=== PATIENT | female | born 1990 | race Caucasian/White ===

== ENCOUNTER 2020-12-14 07:09 | Day surgery (SDC) | payer BC ==
[2020-12-10 11:07] LABS: Absolute Lymphocytes (CBC) 2.6 K/uL (0.7-4.9); Basophils % 1.3 % (0-1.3); Hematocrit 39.8 % (36.0-45.0); Lymphocytes % 29.8 % (15.3-44.8); MPV 7.3 fL (7.6-11.3); RBC Red Blood Cell Count 4.78 M/uL (3.86-4.86)
[2020-12-10 11:23] LABS: Protime INR 1.04
--- NOTE | 2020-12-10 11:25 | RAD REPORT ---
EXAM DESCRIPTION: RAD - Chest Pa And Lat (2 Views) - 12/10/2020 10:54 am CLINICAL HISTORY: preop Chest pain. COMPARISON: Chest Single View dated 06/18/2017 FINDINGS: The lungs are clear. The heart is normal in size. No displaced fractures. Moderate thoraci c dextroscoliosis. IMPRESSION: Moderate dextroscoliosis of the thoracic spine.
[2020-12-10 11:27] LABS: BUN Blood Urea Nitrogen 10 mg/dL (7-18); Bicarbonate 26 mmol/L (21-32); Glucose Level 74 mg/dL (74-106); Potassium 4.2 mmol/L (3.5-5.1); Sodium Level 140 mmol/L (136-145)
[2020-12-14] MEDS ORDERED: Ringers Lactate 1,000 ML IV ONE (07:45)
[2020-12-14] MEDS ORDERED: CEFAZOLIN/SWI 1gm 2 GM/20 ML SYR ONE (07:46)
[2020-12-14] MEDS ORDERED: BUPIVACAINE 0.25% PF 30 ML VIAL ONE (08:57)
--- NOTE | 2020-12-14 09:40 | P.BOP ---
Preoperative diagnosis: left carpal tunnel syndrome Postoperative diagnosis: same Primary procedure: left carpal tunnel release Package Center Supervisor: NONE,NONE Estimated blood loss: 2 cc Specimen: none Findings: see dictation Anesthesia: Balbina Block Complications: None Implants: none Fluids & blood products: per anesthesia record: TT: 30 mins @ 300 mmHg Transferred to: Recovery Room Condition: Good
[2020-12-14] MEDS ORDERED: LIDOCAINE 2% MPF 5 ML VIAL ONE (10:19)
[2020-12-14] MEDS ORDERED: propofoL 200 MG/20 ML VIAL IV ONE (10:19)
[2020-12-14] MEDS ORDERED: KETOROLAC 30 MG/ML INJ ONE (10:19)
[2020-12-14] MEDS ORDERED: MIDAZOLAM HCL 2 MG/2 ML INJ ONE (10:19)
[2020-12-14] MEDS ORDERED: ONDANSETRON 4 MG/2 ML VIAL ONE (10:19)
[2020-12-14] MEDS ORDERED: NS 0.9% VIAL 30 ML ONE (10:19)
[2020-12-14] MEDS ORDERED: dexAMETHasone 10 MG/ML VIAL ONE (10:19)
[2020-12-14] MEDS ORDERED: LIDOCAINE 1% MPF 30 ML VIAL ONE (10:19)
[2020-12-14] MEDS ORDERED: FENTANYL CITR 100 MCG/2 ML ONE (10:19)
[2020-12-14 10:22] VITALS: BP 159/97; TEMP 97.4; O2SAT 100
--- NOTE | 2020-12-14 11:27 | OP ---
Date of Procedure: 12/14/2020 Surgeon: Pavel Sterling MD Preoperative Diagnosis: Left carpal tunnel syndrome. Postoperative Diagnosis: Left carpal tunnel syndrome. Procedure Performed: Left open carpal tunnel release. Anesthesia: Symonds block. Fluids: Per Anesthesia record. Estimated Blood Loss: 3 cc. Complications: None. Implants: None. Tourniquet Time: 30 minutes at 300 mmHg. Indication For Procedure: Sally is a 30-year-old female, who presented to my clinic with signs, symp toms and EMG findings consistent with left carpal tunnel syndrome. The patient failed conservative t reatment measures and had significant symptoms that interfered with her activities of daily living. I discussed with the patient at length risks and benefits associated with operative and nonoperative treatment. She expressed understanding and elected to proceed with operative treatment. Description Of Procedure: After informed consent was obtained, the patient was identified in the pre operative holding area and left upper extremity was marked. The patient was then brought back to the operating room, transferred to the operating table in the supine fashion and placed under Symonds block anesthesia. The left upper extremity was then prepped and draped in usual sterile fashion and time- out was initiated. The correct patient and procedure were confirmed and identified. The patient did receive her preoperative prophylactic antibiotics. Attention was first taken and approximately 3 cm longitudinal incision was made just ulnar to the thenar crease. Dissection was then taken down to t he palmar fascia, which was identified. A Graff elevator was placed just deep to the palmar fascia t o protect the median nerve at all times. A 15 blade was then used to release the palmar fascia and t ransverse carpal ligament. A Graff elevator protected the median nerve at all times. Blunt tip Adalid enbaum was then used to release any remaining fascial bands around the transverse carpal ligament for complete carpal tunnel release. The wound was irrigated thoroughly with normal saline. The skin wa s approximated using 5-0 Prolene. Sterile dressings were applied. Tourniquet was let down. The pat ient was awakened and transferred to same-day surgery in stable condition. Postoperative Plan: The patient will be continued work on range of motion exercises and will be nonw eightbearing. She will follow up in 1 week for suture removal. NEIL/SULEMA Voice ID: [id number] Report ID: [id number]
== END 2020-12-14 10:20 | disposition home or self-care (01) ==
LOC: OR 07:09
PROVIDERS: ATTEND Orthopaedic Surgery Sports Medicine
PROC: 01N50ZZ Release Median Nerve, Open Approach (ICD-10-PCS; principal; 2020-12-14 08:45)
DX: G56.02 Carpal tunnel syndrome, left upper limb (principal); M25.542 Pain in joints of left hand; Z20.822 Contact with and (suspected) exposure to COVID-19
CPT/HCPCS: 93005; 85025; 80048; 36415; 81025; 85610; 85730; 71046; 64721; U0002; J2704; J2250; J3010; J1100; J0690; J7120; J2405

== ENCOUNTER 2024-06-24 07:24 | Day surgery (SDC) | payer BC ==
[2024-06-24] MEDS ORDERED: MIDAZOLAM HCL 2 MG/2 ML INJ ONE (07:49)
[2024-06-24] MEDS ORDERED: dexAMETHasone 10 MG/ML VIAL ONE (07:49)
[2024-06-24] MEDS ORDERED: ROCURONIUM 50 MG/5 ML VIAL IV ONE (07:49)
[2024-06-24] MEDS ORDERED: FENTANYL CITR 100 MCG/2 ML ONE (07:49)
[2024-06-24] MEDS ORDERED: propofoL 200 MG/20 ML VIAL IV ONE (07:49)
[2024-06-24] MEDS ORDERED: LIDOCAINE 1% MPF 5 ML VIAL ONE (07:49)
[2024-06-24] MEDS ORDERED: ONDANSETRON 4 MG/2 ML VIAL ONE (07:49)
[2024-06-24] MEDS ORDERED: GLYCOPYRROLATE 0.2 MG/ML SYR ONE (07:50)
[2024-06-24] MEDS: Ringers Lactate 1,000 ML IV ONE (07:55)
[2024-06-24] MEDS: OXYMETAZOLINE HCL 0.05% 15ML NAS ONE (08:05)
[2024-06-24] MEDS ORDERED: BACITRACIN OINTMENT 14 GM TUBE TOP ONE (08:43)
[2024-06-24] MEDS ORDERED: EPINEPHRINE 1 MG/ML VIAL ONE (08:43)
[2024-06-24] MEDS ORDERED: OXYMETAZOLINE HCL 0.05% 15ML NAS ONE (08:44)
[2024-06-24 09:20] LABS: Urine Specific Gravity/Preg 1.025 (1.005-1.030)
[2024-06-24] MEDS: LIDOCAINE HCL/EPINEPHRINE 20 ML MDV ONE (10:32)
--- NOTE | 2024-06-24 10:44 | P.OP ---
Date of Service: 06/24/24 Preoperative diagnosis: Adenoid hypertrophy, chronic adenoiditis, chronic right maxillary sinusitis and postnasal drainage Postoperative diagnosis: Same Procedure: adenoidectomy, greater than age 12. Nasal endoscopy with right maxillary antrostomy Surgeon: Cindy Patricia MD Infant Nanny: None Anesthesia: General via endotracheal tube IV fluids: See anesthesia record, crystalloid Estimated blood loss: 20 mL Specimen: none Findings: Chronic adenoid inflammation. Accessory ostium right maxillary sinus with mild to moderate mucosal inflammation of the right sinus cavity Details of operation: The patient was brought to the operating room and placed under general anesthesia via oral endotracheal tube. The head of bed was turned 90 degrees. A shoulder roll was placed and the neck was extended. A head drape was applied. The McIvor mouthgag was placed and suspended from the Khalil stand. The oxygen concentration was confirmed with the anesthesiologist and was less than 40%. Weight-based dexamethasone was administered by the anesthesiologist. The soft palate was palpated and there was no submucous cleft. A red rubber catheter was placed in the nose and the tip withdrawn through the mouth and secured to the head drape for retraction of the soft palate. The tonsils were noted to be small to medium with crypts. A laryngeal mirror was then used to visualize the nasopharynx. The adenoid size was noted to be enlarged for age with chronic inflammation and mucoid drainage on the posterior pharyngeal wall and mild cobblestoning of the posterior pharyngeal wall. Using the laryngeal mirror for visualization of the nasopharynx, the straight Blakesley was passed through the left nostril and adv anced through the nasal cavity and used to obtain a small amount of adenoid tissue for pathologic evaluation. The remaining adenoids were removed using suction Bovie cautery. Hemostasis was achieved with packing and cautery as needed. All packing was removed. The nasal cavity, nasopharynx and oropharynx was irrigated with cold saline. The red rubber catheter was removed and used to suction the oropharynx, nasopharynx, and nasal cavities. The McIvor mouthgag was removed. There was no evidence of injury to the teeth, lips, or tongue. The mandible was mobile. Attention was then turned to the sinus portion of the case. A 0 degree endoscope was used to perform a nasal endoscopy with notable findings of right accessory maxillary ostium but no active purulent drainage or evidence of inflammatory polyp or other neoplasm. No accessory ostium was visualized on the left side. Photo documentation was obtained. The right middle turbinate was medialized using a [place] and the uncinate process was injected with a small amount of 1% lidocaine with epinephrine. The uncinate was then medialized using a maxillary seeker. The backbiter and 90 degree Blakesley were used to cut and remove the uncinate process. The 30 degree rigid scope was then used for better visualization of the lateral nasal wall and right maxillary sinus. The Heuweiser was used to remove additional portions of the uncinate process with care taken to incorporate the created antrostomy with the accessory and natural ostium. Afrin-soaked pledgets were placed within the middle meatus for several minutes. The nasal cavity was irrigated using a bulb syringe. The nasal cavity was suctioned; after removal of all packing and pledgets, the antrostomy and sinus were visualized with the 70 degree endoscope with notation of mild to moderate mucosal inflammation but no overt pus or polyp was noted. There was no significant oozing and decision was made to forego nasal packing. Removed tissue was sent to pathology as right maxillary sinus with suspicion for acute and chronic inflammation. At the conclusion of the procedure, all pledget counts were confirmed correct. The patient was returned to care of anesthesia for awakening extubation in the operating room which proceeded without difficulty. The patient was transported to the recovery room and will be discharged home later today in the care of their family. The patient is given written and verbal instructions regarding the importance of saline irrigations and nasal precautions. Implants/Packing: None Complications: None
[2024-06-24] MEDS: HYDROMORPHONE HCL 1 MG/ML INJ ONE ×2 (10:55→11:11)
[2024-06-24] MEDS: IBUPROFEN 400 MG TAB ONE (11:38)
[2024-06-24 14:21] VITALS: BP 111/80; TEMP 98; O2SAT 98
== END 2024-06-24 12:10 | disposition home or self-care (01) ==
LOC: OR 07:24
PROVIDERS: ATTEND Otolaryngology
PROC: 0CTQXZZ Resection of Adenoids, External Approach (ICD-10-PCS; principal; 2024-06-24 08:45)
PROC: 099Q8ZZ Drainage of Right Maxillary Sinus, Via Natural or Artificial Opening Endoscopic (ICD-10-PCS; 2024-06-24 08:45)
DX: J35.2 Hypertrophy of adenoids (principal); J32.0 Chronic maxillary sinusitis; R09.82 Postnasal drip
CPT/HCPCS: 81025; 88304; 88305; 42831; 31256; J2704; J2003; J2250; J3010; J1100; J1171 ×2; J2405; J7120; J0171

== ENCOUNTER 2024-06-24 17:32 | Emergency (ER) | payer BC ==
[2024-06-24] MEDS ORDERED: NA CHLORIDE 0.9% 500 ML ONE (17:59)
[2024-06-24] MEDS ORDERED: ONDANSETRON 4 MG/2 ML VIAL ONE (17:59)
[2024-06-24] MEDS ORDERED: TRANEXAMIC ACID 1,000 MG/10 ML VIAL IV ONE (17:59)
[2024-06-24] MEDS ORDERED: NA CHLORIDE 0.9% 100 ML ONE (18:00)
[2024-06-24 18:11] LABS: Absolute Neutrophil 9.3 K/uL (1.8-8.0); Basophils % 0.5 % (0-1.3); Hematocrit 42.5 % (36.0-45.0); Hemoglobin 14.3 g/dL (12.0-15.0); Lymphocytes % 9.7 % (15.3-44.8); MCH 28.9 pg (27.0-35.0); MCHC 33.7 g/dL (32.0-36.0); MCV 85.8 fL (80-100); MPV 7.1 fL (7.6-11.3); Monocytes % 0.4 % (3.3-12.3); Neutrophils % 89.4 % (41.7-73.7); PT Prothrombin Time 12.4 SECONDS (9.4-12.5); Platelets 367 thou/uL (152-406); Protime INR 1.18; RBC Red Blood Cell Count 4.96 M/uL (3.86-4.86); Red Cell Distribution Width 13.3 % (12.1-15.2)
[2024-06-24 18:22] LABS: Albumin 3.5 g/dL (3.4-5.0); Albumin/Globulin Ratio 0.8 (1.1-1.8); Anion Gap 11.2 mEq/L (5.0-15.0); Bilirubin Total 0.3 mg/dL (0.2-1.0); Globulin 4.3 g/dL (2.3-3.5); Potassium 4.2 mEq/L (3.5-5.1); Protein, Total 7.8 g/dL (6.4-8.2)
--- NOTE | 2024-06-24 18:23 | ER ---
Nurse's Notes [facility] Name: Sally Stanley Age: 34 yrs Sex: Female : 1990 Arrival Date: 06/24/2024 Time: 17:32 Bed 18 Private MD: Diagnosis: Epistaxis;Postprocedural hemorrhage of skin and subcutaneous tissue following other procedure Presentation: 06/24 17:41 Chief complaint: Patient states: Sent by Dr Patricia's office. Patient had adenoidectomy me1 and a piece of bone removed from her nose this morning and patient has had intermittent nose bleeds from the right nare today. Coronavirus screen: Vaccine status: Patient reports being unvaccinated. Ebola Screen: No symptoms or risks identified at this time. Initial Sepsis Screen: Does the patient meet any 2 criteria? No. Patient's initial sepsis screen is negative. Does the patient have a suspected source of infection? No. Patient's initial sepsis screen is negative. Risk Assessment: Do you want to hurt yourself or someone else? Patient reports no desire to harm self or others. Onset of symptoms was June 24, 2024 at 09:00. 17:41 Method Of Arrival: Ambulatory fl1 17:41 Acuity: JACKY 4 me1 Triage Assessment: 17:43 General: Appears comfortable, well groomed, well developed, well nourished, Behavior is me1 calm, cooperative, appropriate for age. Pain: Complains of pain in right submandibular area and left submandibular area Pain does not radiate. Pain currently is 2 out of 10 on a pain scale. Quality of pain is described as tender, Pain began gradually, Is continuous. EENT: Reports adenoid excision today. EENT: Reports nasal discharge that is bloody intermittently today since surgery. Not bleeding at this time. Neuro: Level of Consciousness is awake, alert, obeys commands, Oriented to person, place, time, situation, Appropriate for age. Cardiovascular: Patient's skin is warm and dry. Respiratory: Airway is patent Respiratory effort is even, unlabored, Respiratory pattern is regular, symmetrical. GI: No signs and/or symptoms were reported involving the gastrointestinal system. : No signs and/or symptoms were reported regarding the genitourinary system. Derm: Skin is intact, is healthy with good turgor, Skin is pink, warm \T\ dry. Musculoskeletal: No signs and/or symptoms reported regarding the musculoskeletal system. 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 - Infectious Disease History:: Denies. - Social history:: Smoking status: Patient denies any tobacco usage or history of. Screenin:46 [facility] ED Fall Risk Assessment (Adult) History of falling in the last 3 months, me1 including since admission No falls in past 3 months (0 pts) Confusion or Disorientation No (0 pts) Intoxicated or Sedated No (0 pts) Impaired Gait No (0 pts) Mobility Assist Device Used No (0 pt) Altered Elimination No (0 pt) Score/Fall Risk Level 0 - 2 = Low Risk Maintained a safe environment, Provided non-skid footwear, Hourly rounding (assess needs \T\ fall precautionary measures) done. Abuse screen: Denies threats or abuse. Nutritional screening: No deficits noted. Tuberculosis screening: No symptoms or risk factors identified. Assessment: 17:46 General: See triage assessment.. me1 Vital Signs: 17:41 BP 114 / 79; Pulse 83; Resp 16; Temp 98.4; Pulse Ox 96% ; Weight 63.5 kg; Height 5 ft. me1 0 in. ; Pain 2/10; 18:30 BP 108 / 76; Pulse 85; Resp 16; Temp 98.3; Pulse Ox 97% ; me1 17:41 Body Mass Index 27.34 (63.50 kg, 152.4 cm) me1 17:41 Pain Scale: Adult me1 ED Course: 17:34 Patient arrived in ED. ra3 17:36 Justino Champion MD is Attending Physician. herbie 17:41 Chichi Romero, YONI is Primary Nurse. me1 17:43 Triage completed. me1 17:43 Arm band placed on Patient placed in an exam room. EKG completed in triage. Results me1 shown to MD. 17:46 Patient has correct armband on for positive identification. Bed in low position. Call me1 light in reach. Side rails up X 1. Provided Education on: POC. Verbalized understanding.. 17:46 No provider procedures requiring assistance completed. me1 17:56 PT-INR Sent. me1 17:56 Comprehensive Metabolic Panel Sent. me1 17:56 CBC with Diff Sent. me1 17:56 Initial lab(s) drawn, by me, sent to lab. Inserted saline lock: 22 gauge in right me1 antecubital area, using aseptic technique. 18:22 Cindy Patricia MD is Referral Physician. herbie 18:36 IV discontinued, intact, bleeding controlled, No redness/swelling at site. Pressure me1 dressing applied. Administered Medications: 17:36 CANCELLED (Duplicate Order): Ondansetron Oral Disintegrating Tablet 4 mg PO once herbie 18:07 Drug: NS 0.9% IV 500 ml 500 ml IV at 1 bolus once; to be given as a bolus over 30 me1 minutes Volume: 500 ml; Route: IV; Rate: 1 bolus; Site: right antecubital; 18:31 Follow up: Response: No adverse reaction; IV Status: Completed infusion; IV Intake: me1 500ml 18:07 Drug: Ondansetron IVP 4 mg IVP once; over 2 minutes Route: IVP; Site: right antecubital;me1 18:31 Follow up: Response: No adverse reaction me1 18:07 Drug: tranexamic acid 1000 mg IV at per protocol once; administer at a rate not to me1 exceed 100 mg per min Route: IV; Rate: per protocol; Site: right antecubital; 18:31 Follow up: Response: No adverse reaction; IV Status: Completed infusion me1 Medication: 17:46 VIS not applicable for this client. me1 Intake: 18:31 IV: 500ml; Total: 500ml. me1 Outcome: 18:22 Discharge ordered by . herbie 18:36 Discharged to home ambulatory, with significant other, me1 18:36 Condition: stable 18:36 Discharge instructions given to patient, significant other, Instructed on discharge instructions, follow up and referral plans. Demonstrated understanding of instructions, follow-up care, 18:37 Patient left the ED. me1 Signatures: Justino Champion MD MD cha Eddleman, Michelle, RN RN me1 Rachel Babb ra3
--- NOTE | 2024-06-24 18:23 | EDPHYS ---
Physician Documentation [facility] Name: Sally Stanley Age: 34 yrs Sex: Female : 1990 Arrival Date: 06/24/2024 Time: 17:32 Bed 18 Private MD: Justino Nuñez HPI: 06/24 17:44 This 34 yrs old Female presents to ER via Ambulatory with complaints of Nose herbie Bleed - Post Sx. 17:44 The patient presents with a nose bleed, nasal drainage, that is bloody. Onset: The herbie symptoms/episode began/occurred just prior to arrival, today. Modifying factors: The symptoms are alleviated by nothing. the symptoms are aggravated by nothing. Associated signs and symptoms: The patient has no apparent associated signs or symptoms, Loss of consciousness: the patient experienced no loss of consciousness. 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 - Infectious Disease History:: Denies. - Social history:: Smoking status: Patient denies any tobacco usage or history of. ROS: 17:46 Constitutional: Negative for fever, chills, and weight loss, Eyes: Negative for injury, herbie pain, redness, and discharge, Neck: Negative for injury, pain, and swelling, Cardiovascular: Negative for chest pain, palpitations, and edema, Respiratory: Negative for shortness of breath, cough, wheezing, and pleuritic chest pain, Abdomen/GI: Negative for abdominal pain, nausea, vomiting, diarrhea, and constipation, Back: Negative for injury and pain, : Negative for injury, bleeding, discharge, and swelling, MS/Extremity: Negative for injury and deformity, Skin: Negative for injury, rash, and discoloration, Neuro: Negative for headache, weakness, numbness, tingling, and seizure, Psych: Negative for depression, anxiety, suicide ideation, homicidal ideation, and hallucinations, Allergy/Immunology: Negative for hives, rash, and allergies, Endocrine: Negative for neck swelling, polydipsia, polyuria, polyphagia, and marked weight changes, Hematologic/Lymphatic: Negative for swollen nodes, abnormal bleeding, and unusual bruising, 17:46 ENT: Positive for nose bleed, Exam: 17:46 Constitutional: This is a well developed, well nourished patient who is awake, alert, herbie and in no acute distress. Head/Face: Normocephalic, atraumatic. Eyes: Pupils equal round and reactive to light, extra-ocular motions intact. Lids and lashes normal. Conjunctiva and sclera are non-icteric and not injected. Cornea within normal limits. Periorbital areas with no swelling, redness, or edema. Neck: Trachea midline, no thyromegaly or masses palpated, and no cervical lymphadenopathy. Supple, full range of motion without nuchal rigidity, or vertebral point tenderness. No Meningismus. Chest/axilla: Normal chest wall appearance and motion. Nontender with no deformity. No lesions are appreciated. Cardiovascular: Regular rate and rhythm with a normal S1 and S2. No gallops, murmurs, or rubs. Normal PMI, no JVD. No pulse deficits. Respiratory: Lungs have equal breath sounds bilaterally, clear to auscultation and percussion. No rales, rhonchi or wheezes noted. No increased work of breathing, no retractions or nasal flaring. Abdomen/GI: Soft, non-tender, with normal bowel sounds. No distension or tympany. No guarding or rebound. No evidence of tenderness throughout. Back: No spinal tenderness. No costovertebral tenderness. Full range of motion. Skin: Warm, dry with normal turgor. Normal color with no rashes, no lesions, and no evidence of cellulitis. MS/ Extremity: Pulses equal, no cyanosis. Neurovascular intact. Full, normal range of motion., bilateral aka Neuro: Awake and alert, GCS 15, oriented to person, place, time, and situation. Cranial nerves II-XII grossly intact. Motor strength 5/5 in all extremities. Sensory grossly intact. Cerebellar exam normal. Normal gait. Psych: Awake, alert, with orientation to person, place and time. Behavior, mood, and affect are within normal limits. 17:46 ENT: Nose: Mouth: Oral mucosa: normal, Gums: normal with healthy appearance, Vital Signs: 17:41 BP 114 / 79; Pulse 83; Resp 16; Temp 98.4; Pulse Ox 96% ; Weight 63.5 kg; Height 5 ft. me1 0 in. ; Pain 2/10; 18:30 BP 108 / 76; Pulse 85; Resp 16; Temp 98.3; Pulse Ox 97% ; me1 17:41 Body Mass Index 27.34 (63.50 kg, 152.4 cm) me1 17:41 Pain Scale: Adult me1 MDM: 17:36 Medical Screening Exam initiated [facility] 17:48 Differential diagnosis: trauma, sp adenoidectomy. Data reviewed: vital signs, nurses [facility] notes, lab test result(s), CBC, electrolytes. Consideration of Admission/Observation Escalation of care including admission/observation considered. I considered the following discharge prescriptions or medication management in the emergency department Medications were administered in the Emergency Department. See MAR. Test considered but Not performed: CT: no ct. ED course: dw dr kathi ortega, 1 gm txa, obs the dc. 06/24 17:36 Order name: CBC with Diff; Complete Time: 18:22 [facility] 06/24 17:36 Order name: Comprehensive Metabolic Panel [facility] 06/24 17:36 Order name: PT-INR; Complete Time: 18:22 herbie Administered Medications: 17:36 CANCELLED (Duplicate Order): Ondansetron Oral Disintegrating Tablet 4 mg PO once [facility] 18:07 Drug: NS 0.9% IV 500 ml 500 ml IV at 1 bolus once; to be given as a bolus over 30 me1 minutes Volume: 500 ml; Route: IV; Rate: 1 bolus; Site: right antecubital; 18:31 Follow up: Response: No adverse reaction; IV Status: Completed infusion; IV Intake: me1 500ml 18:07 Drug: Ondansetron IVP 4 mg IVP once; over 2 minutes Route: IVP; Site: right antecubital;me1 18:31 Follow up: Response: No adverse reaction ia1 18:07 Drug: tranexamic acid 1000 mg IV at per protocol once; administer at a rate not to me1 exceed 100 mg per min Route: IV; Rate: per protocol; Site: right antecubital; 18:31 Follow up: Response: No adverse reaction; IV Status: Completed infusion me1 Disposition Summary: 06/24/24 18:22 Discharge Ordered Notes: Location: Home herbie Problem: new herbie Symptoms: have improved herbie Condition: Stable herbie Diagnosis - Epistaxis herbie - Postprocedural hemorrhage of skin and subcutaneous tissue following other procedure herbie Followup: herbie - With: Private Physician - When: 2 - 3 days - Reason: Recheck today's complaints, Continuance of care, Re-evaluation by your physician Followup: herbie - With: Cindy Ortega MD - When: 2 - 3 days - Reason: Recheck today's complaints, Re-evaluation by your physician Discharge Instructions: - Discharge Summary Sheet herbie - Nosebleed, Adult herbie - Hematoma herbie - Hematoma, [id number] herbie - Nosebleed, Adult, [id number] herbie Forms: - Medication Reconciliation Form herbie - Antibiotic Education herbie - Prescription Opioid Use herbie - Patient Portal Instructions herbie - Leadership Thank You Letter herbie Signatures: Dispatcher [employer] Justino Pan MD MD cha Eddleman, Michelle RN RN me1 Corrections: (The following items were deleted from the chart) 17:36 17:36 Ondansetron Oral Disintegrating Tablet Oral Disintegrating Tablet 4 mg PO once herbie ordered. herbie
[2024-06-24 19:01] VITALS: BP 108/76; TEMP 98.3; O2SAT 97
== END 2024-06-24 18:37 | disposition home or self-care (01) ==
LOC: ER 17:32
DX: R04.0 Epistaxis (principal); L76.22 Postprocedural hemorrhage of skin and subcutaneous tissue following other procedure
CPT/HCPCS: 96365; 85025; 36415; 85610; 80053; 96375; 99284; J2405; J7040